=== PATIENT | male | born 1955 | race Caucasian/White ===

== ENCOUNTER → 2023-08-16 12:55 | Outpatient (BNVA) | payer OTHER, SELFPAY | PROVIDERS: Visit Provider Physician Assistant Medical | DX: M54.50 Low back pain, unspecified (principal); M54.16 Radiculopathy, lumbar region | CPT/HCPCS: 72110; 99203 ==

== ENCOUNTER → 2023-08-25 09:31 | Outpatient (BNVA) | payer OTHER, SELFPAY | PROVIDERS: Visit Provider Physician Assistant Medical | DX: M54.16 Radiculopathy, lumbar region (principal) | CPT/HCPCS: 99213 ==

== ENCOUNTER → 2023-09-15 09:24 | Outpatient (BNVA) | payer OTHER, SELFPAY | PROVIDERS: PCP Internal Medicine; Visit Provider Physician Assistant Medical | DX: M54.16 Radiculopathy, lumbar region (principal) | CPT/HCPCS: 99213 ==

== ENCOUNTER → 2023-10-06 10:08 | Outpatient (BNVA) | payer OTHER, SELFPAY | PROVIDERS: PCP Internal Medicine; Visit Provider Physician Assistant Medical | DX: M54.50 Low back pain, unspecified (principal) | CPT/HCPCS: 99213 ==

== ENCOUNTER → 2023-10-27 09:07 | Outpatient (BNVA) | payer OTHER, SELFPAY | PROVIDERS: PCP Internal Medicine; Visit Provider Physician Assistant Medical | DX: M79.651 Pain in right thigh (principal) | CPT/HCPCS: 72190; 99213 ==

== ENCOUNTER 2023-10-27 19:28 | Outpatient (REF) | payer OTHER, SELFPAY ==
--- NOTE | ~2023-10-27 | MR_ITS ---
EXAMINATION: MR LUMBAR SPINE WITHOUT CONTRAST CLINICAL INFORMATION: Low back pain and radiculopathy COMPARISON: Lumbar radiographs 08/16/2023 TECHNIQUE: MRI of the lumbar spine was obtained using routine sequences without the administration of intravenous contrast. FINDINGS: This examination assumes the presence of 5 lumbar type vertebral bodies. For the purposes of this examination, the L5-S1 intervertebral disc space is visualized on axial series 8 image 32. 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 The normal lumbar lordosis is preserved. Grade 1 anterolisthesis of L4-L5. Retrolisthesis of T12-L1 and L1-L2. Multilevel Schmorl's nodes are noted. Multilevel degenerative endplate changes. Facet/perifacet edema at L4-L5, likely on the basis of degenerative change. The conus medullaris and cauda equina nerve roots are unremarkable; the conus terminates at the level of L1. T12-L1: Retrolisthesis and a disc bulge. Facet arthropathy with ligamentum flavum redundancy. The spinal canal is patent. Moderate narrowing of the right neural foramen. L1-L2: Retrolisthesis and disc bulge with osteophytic ridging. Facet arthropathy with ligamentum flavum redundancy. There is moderate spinal canal stenosis with crowding of the cauda equina nerve roots. Moderate to severe narrowing of the right neural foramen with exiting nerve root impingement. Mild to moderate narrowing of the left neural foramen. L2-L3: Trace disc bulge. Facet arthropathy and ligamentum flavum redundancy. The spinal canal is mildly narrowed. Prominent epidural fat. Mild narrowing of the right neural foramen. L3-L4: Disc bulge and facet arthropathy with ligamentum flavum redundancy. Prominent epidural fat. Mild narrowing of the thecal sac. Mild narrowing of the right neural foramen. L4-L5: Severe facet arthropathy with ligamentum flavum redundancy. Small bilateral facet joint fluid. There is grade 1 anterolisthesis with uncovering of the intervertebral disc space. Severe spinal canal stenosis with impingement of the lateral recesses. There is mild to moderate right neural foraminal stenosis with exiting nerve root abutment by facet arthropathy. Severe left neural foraminal stenosis with compression of the exiting left L4 nerve root in the neural foramen extending into the far lateral space. L5-S1: The spinal canal is patent. The left neural foramen is mildly narrowed. Partially visualized bladder wall thickening with possible superiorly directed diverticulum. MR/MR lumbar spine wo con IMPRESSION: This examination assumes the presence of 5 lumbar type vertebral bodies. 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 Numbering system for this examination as described above. If surgery is considered, total spine radiographs are recommended to ensure accurate spine labeling. Grade 1 anterolisthesis of L4-L5 with severe spinal canal stenosis. Severe left neural foraminal stenosis at L4-L5 without exiting nerve root compression. Moderate spinal canal stenosis at L1-L2 with moderate to severe right neural foraminal stenosis and exiting nerve root impingement. Electronically signed by: Rudy Carver MD 11/02/2023 06:51 PM EDT
== END 2023-10-27 19:29 | disposition home or self-care (01) ==
LOC: HO.MRI 19:28
PROVIDERS: PCP Internal Medicine; Visit Provider Internal Medicine
DX: M54.16 Radiculopathy, lumbar region (principal); Z91.81 History of falling
CPT/HCPCS: 72148

== ENCOUNTER → 2023-11-10 09:27 | Outpatient (BNVA) | payer OTHER, SELFPAY | PROVIDERS: PCP Internal Medicine; Visit Provider Physician Assistant Medical | DX: M51.16 Intervertebral disc disorders with radiculopathy, lumbar region (principal) | CPT/HCPCS: 99213 ==

== ENCOUNTER 2023-11-25 08:50 | Outpatient (RCR) | payer OTHER, BC, SELFPAY ==
--- NOTE | 2023-09-09 06:52 | MHC.PT.EP ---
[facility] [place] Office [place] Office [place] Office [address] Zeferino Faulkner [address] [phone] F: [phone] F: [phone] F: [phone] F: [phone] Physical Therapy Plan of Care Date of Evaluation: 09/07/23 Date of Surgery: Diagnosis: LBP with sciatica Assessment: Pt is a 68yo male who presents with subacute low back pain s/p fall. PT exam reveals poor sitting posture, improper body mechanics, as well as core/hip strength impairments. Skilled PT indicated to address symptoms of radiculopathy/pain, teach body awareness to reduce strain on back, promote lumbar stabilization through exercises, and prescribe HEP to maintain gains upon discharge. Pt is in agreement with POC and is motivated to participate. Frequency and Duration: The patient will be seen 2x/week x 4 weeks Short Term Goals: 1. In 2 weeks, patient will be able to properly active TA and hold x 10 seconds while in 3 different positions. 2. In 2 weeks, patient will demonstrate proper sitting posture. 3. In 2 weeks, patient will complete daily exercises with > 75% compliance. Leather Drier Goals: 1. In 4 weeks, patient will report overall improved pain levels and mobility, as indicated by score >= 70/80 on LEFS. 2. Patient will report 100% centralization of R LE symptoms. 3. I with D/C HEP in 4 weeks. Treatment Plan: Modalities to reduce pain, spasms and effusion. Manual therapy to restore motion and function. Therapeutic exercise to improve strength and flexibility. Neuromuscular re-education for posture and balance. Therapeutic activities to return to functional activities of daily living. Electronically signed by: Altagracia Martin PT, DPT Please sign and return to therapist. Thank you for your referral.
--- NOTE | 2023-09-12 15:31 | MHC.PT.OE ---
[facility] [place] Office [place] Office [place] Office [address] Zeferino Faulkner [address] [phone] F: [phone] F: [phone] F: [phone] F: [phone] Physical Therapy Evaluation Evaluation Date: 09/07/23 Current Condition Diagnosis: LBP with sciatica Onset Date: 08/25/23 Date of Surgery: Chief Complaint/ Current Level of Function: Pt is a 68yo male who presents for low back pain. Pt reports he fell/slipped at a store on July 21, fell onto his butt. Pt felt R LE pain a week later. Pt noted to have LE pain goes down to his lateral calf, not into the toes. Pt does not feel like his leg is going to give out. 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 Pt usually wakes up in the morning and feels fine, the pain is worse after a long day. Pt was prescribed steroids for a brief time which helped the pain. Prior Level of Function/Occupation: Goes to [employer] both weekend days usually, sometimes only once a week because of the pain lately. Does some resistance machines, rowing machine. Likes to ride his bike outdoors Diagnostic Imaging: X-Ray 08/16/23: degenerative changes observed, L4-S1 anterior spondolytic changes Patient Goals and Expectations: To get rid of the leg pain/numbness, and prevent it from getting worse. Past Medical History: PSH: R shoulder surgery Medications: see list Precautions/ Contraindications: inguinal hernia: avoid increased intrabdominal pressure Outcome Measure: 55/80 LEFS Pain Pain Score: 5 Pain Scale Used: Numeric (0 - 10) Pain Location/ Description: low back, R LE Aggravating Factors: sitting or standing too long Alleviating Factors: steroids helped, ice Objective Findings Posture: Skin & Soft Tissue/ Palpation: Gait/ Functional Mobility: AROM (PROM) Strength Cervical Spine Flexion: Extension: Lateral Flexion: Rotation: Cervical Comments: Flexion: Extension: Lateral Flexion: Rotation: Other: Shoulder Flexion: Extension: Abduction: ER: IR: Apley ER: Apley IR: Comments: Flexion: Extension: Abduction: Adduction: ER: IR: Other: Elbow Flexion: Extension: Pronation: Supination: Comments: Flexion: Extension: Pronation: Supination: Wrist Flexion: Wrist Extension: Other: Lumbar Spine Flexion: Extension: Lateral Flexion: Rotation: Comments: Transverse abdominus: Extensors: Other: Hip Flexion: Extension: Abduction: Adduction: ER: IR: Comment: Flexion: Extension: Abduction: Adduction: ER: IR: Other: Knee Flexion: Extension: Comments: Patella Mobility: Flexion: Extension: Other: Ankle Dorsiflexion: Plantarflexion: Inversion: Eversion: Comments: Dorsiflexion: Plantarflexion: Inversion: Eversion: Comments: Pedro Assessment: Sacroiliac Assessment: Muscle Length: Special Tests: Vitals: BP: HR: O2SAT: RR: Other: Balance: Neurological Screen: Biceps DTR: Brachioradialis DTR: Triceps DTR: Patella DTR: Achilles DTR: Other: Dermatomes: Sensation: Myotomes: Patient Education Primary Language Estonian Cosmetics Demonstrator Required No Who was Educated Patient Readiness for Learning Accepting Current Knowledge Understands information with skills for self-management Education Needs ADL's Disease Information Equipment Use Exercise Pain Safety Teaching Method Verbal Demonstration Handouts How did Patient Demonstrate Learning Patient demonstrates Patient verbalizes Barriers to Learning None Assessment Assessment: Pt is a 68yo male who presents with subacute low back pain s/p fall. PT exam reveals poor sitting posture, improper body mechanics, as well as core/hip strength impairments. Skilled PT indicated to address symptoms of radiculopathy/pain, teach body awareness to reduce strain on back, promote lumbar stabilization through exercises, and prescribe HEP to maintain gains upon discharge. Pt is in agreement with POC and is motivated to participate. Rehabilitation Potential: Good Plan of Care Frequency and Duration 2x/week x 4 weeks Short Term Goals 1. In 2 weeks, patient will be able to properly active TA and hold x 10 seconds while in 3 different positions. 2. In 2 weeks, patient will demonstrate proper sitting posture. 3. In 2 weeks, patient will complete daily exercises with > 75% compliance. Nursing Home Goals 1. In 4 weeks, patient will report overall improved pain levels and mobility, as indicated by score >= 70/80 on LEFS. 2. Patient will report 100% centralization of R LE symptoms. 3. I with D/C HEP in 4 weeks. Treatment Plan Therapeutic Exercise Dynamic Therapeutic Activities Neuromuscular Re-ed Manual Therapies Joint Mobilization Taping Gait Home Exercise Program Patient Education Electrical Stimulation Mechanical Traction Hot or Cold Pack Reviewed/ Agreed with Student Documentation: Therapist: Electronically signed by: Altagracia Martin PT, DPT Please sign and return to therapist. Thank you for your referral.
--- NOTE | 2023-09-12 15:32 | MHC.PT.OE ---
[facility] [place] Office Only Office [place] Office [address] Zeferino Faulkner [address] [phone] F: [phone] F: [phone] F: [phone] F: [phone] Physical Therapy Evaluation Evaluation Date: 09/07/23 Current Condition Diagnosis: LBP with sciatica Onset Date: 08/25/23 Date of Surgery: Chief Complaint/ Current Level of Function: Pt is a 68yo male who presents for low back pain. Pt reports he fell/slipped at a store on July 21, fell onto his butt. Pt felt R LE pain a week later. Pt noted to have LE pain goes down to his lateral calf, not into the toes. Pt does not feel like his leg is going to give out. 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 Pt usually wakes up in the morning and feels fine, the pain is worse after a long day. Pt was prescribed steroids for a brief time which helped the pain. Prior Level of Function/Occupation: Goes to [employer] both weekend days usually, sometimes only once a week because of the pain lately. Does some resistance machines, rowing machine. Likes to ride his bike outdoors Diagnostic Imaging: X-Ray 08/16/23: degenerative changes observed, L4-S1 anterior spondolytic changes Patient Goals and Expectations: To get rid of the leg pain/numbness, and prevent it from getting worse. Past Medical History: PSH: R shoulder surgery Medications: see list Precautions/ Contraindications: inguinal hernia: avoid increased intrabdominal pressure Outcome Measure: 55/80 LEFS Pain Pain Score: 5 Pain Scale Used: Numeric (0 - 10) Pain Location/ Description: low back, R LE Aggravating Factors: sitting or standing too long Alleviating Factors: steroids helped, ice Objective Findings Posture: Skin & Soft Tissue/ Palpation: Gait/ Functional Mobility: AROM (PROM) Strength Cervical Spine Flexion: Extension: Lateral Flexion: Rotation: Cervical Comments: Flexion: Extension: Lateral Flexion: Rotation: Other: Shoulder Flexion: Extension: Abduction: ER: IR: Apley ER: Apley IR: Comments: Flexion: Extension: Abduction: Adduction: ER: IR: Other: Elbow Flexion: Extension: Pronation: Supination: Comments: Flexion: Extension: Pronation: Supination: Wrist Flexion: Wrist Extension: Other: Lumbar Spine Flexion: Extension: Lateral Flexion: Rotation: Comments: Transverse abdominus: Extensors: Other: Hip Flexion: Extension: Abduction: Adduction: ER: IR: Comment: Flexion: Extension: Abduction: Adduction: ER: IR: Other: Knee Flexion: Extension: Comments: Patella Mobility: Flexion: Extension: Other: Ankle Dorsiflexion: Plantarflexion: Inversion: Eversion: Comments: Dorsiflexion: Plantarflexion: Inversion: Eversion: Comments: Pedro Assessment: Sacroiliac Assessment: Muscle Length: Special Tests: Vitals: BP: HR: O2SAT: RR: Other: Balance: Neurological Screen: Biceps DTR: Brachioradialis DTR: Triceps DTR: Patella DTR: Achilles DTR: Other: Dermatomes: Sensation: Myotomes: Patient Education Primary Language Turkish Ground Worker Required No Who was Educated Patient Readiness for Learning Accepting Current Knowledge Understands information with skills for self-management Education Needs ADL's Disease Information Equipment Use Exercise Pain Safety Teaching Method Verbal Demonstration Handouts How did Patient Demonstrate Learning Patient demonstrates Patient verbalizes Barriers to Learning None Assessment Assessment: Pt is a 68yo male who presents with subacute low back pain s/p fall. PT exam reveals poor sitting posture, improper body mechanics, as well as core/hip strength impairments. Skilled PT indicated to address symptoms of radiculopathy/pain, teach body awareness to reduce strain on back, promote lumbar stabilization through exercises, and prescribe HEP to maintain gains upon discharge. Pt is in agreement with POC and is motivated to participate. Rehabilitation Potential: Good Plan of Care Frequency and Duration 2x/week x 4 weeks Short Term Goals 1. In 2 weeks, patient will be able to properly active TA and hold x 10 seconds while in 3 different positions. 2. In 2 weeks, patient will demonstrate proper sitting posture. 3. In 2 weeks, patient will complete daily exercises with > 75% compliance. Snf Goals 1. In 4 weeks, patient will report overall improved pain levels and mobility, as indicated by score >= 70/80 on LEFS. 2. Patient will report 100% centralization of R LE symptoms. 3. I with D/C HEP in 4 weeks. Treatment Plan Therapeutic Exercise Dynamic Therapeutic Activities Neuromuscular Re-ed Manual Therapies Joint Mobilization Taping Gait Home Exercise Program Patient Education Electrical Stimulation Mechanical Traction Hot or Cold Pack Reviewed/ Agreed with Student Documentation: Therapist: Electronically signed by: Altagracia Martin PT, DPT Please sign and return to therapist. Thank you for your referral.
--- NOTE | 2023-09-12 15:32 | MHC.PT.OD ---
[facility] [place] Office [place] Office [place] Office [address] Zeferino Faulkner [address] [phone] F: [phone] F: [phone] F: [phone] F: [phone] Physical Therapy Daily Note Diagnosis: LBP with sciatica Date of Surgery: Date of Evaluation: 09/07/23 Date of Treatment: 09/07/23 Treatments to Date: 1 Cancellations to Date: No Shows to Date: Authorized Visits: Insurance End Date: Precautions/ Contraindications:inguinal hernia: avoid increased intrabdominal pressure Subjective: I want to get back to my normal job. Pain Score and Location: 5 low back,l R LE Objective Flowsheet: Tests & Measures see eval Exercises TAC training, difficulty to activate, cues to avoid holding breath shhhh method to activate pt ed re: avoid holding breath to reduce pressure on inguinal hernia -more success with TAC when also completing PPT pt ed re: sitting posture, avoid sacral sitting bed mobility: log roll body mechanics with lifting Modalities Assessment: Pt is a 68yo male who presents with subacute low back pain s/p fall. PT exam reveals poor sitting posture, improper body mechanics, as well as core/hip strength impairments. Skilled PT indicated to address symptoms of radiculopathy/pain, teach body awareness to reduce strain on back, promote lumbar stabilization through exercises, and prescribe HEP to maintain gains upon discharge. Pt is in agreement with POC and is motivated to participate. PT Plan: lumbar stab, centralization of R LE pain, improve body mechanics and teach back protection Short Term Goals: 1. In 2 weeks, patient will be able to properly active TA and hold x 10 seconds while in 3 different positions. 2. In 2 weeks, patient will demonstrate proper sitting posture. 3. In 2 weeks, patient will complete daily exercises with > 75% compliance. Snf Goals: 1. In 4 weeks, patient will report overall improved pain levels and mobility, as indicated by score >= 70/80 on LEFS. 2. Patient will report 100% centralization of R LE symptoms. 3. I with D/C HEP in 4 weeks. Electronically signed by: Altagracia Martin PT, DPT
--- NOTE | 2023-10-04 07:56 | MHC.PT.OD ---
[facility] [place] Office [place] Office [place] Office [address] Zeferino Faulkner [address] [phone] F: [phone] F: [phone] F: [phone] F: [phone] Physical Therapy Daily Note Diagnosis: L5 contusion/strain with R radicular sx date of script 08/25/23 by Clair Mcdonald PA-C [facility] Date of Surgery: Date of Evaluation: 09/07/23 Date of Treatment: 10/04/23 Treatments to Date: 1 Cancellations to Date: No Shows to Date: Authorized Visits: Insurance End Date: Precautions/ Contraindications:inguinal hernia: avoid increased intrabdominal pressure Subjective: It was okay yesterday until I started bopping around the kitchen. Pt states he has a follow-up on . Pain Score and Location: 3.5 low back,l R LE Objective Flowsheet: Tests & Measures Lumbar flexion: Able to reach height of ankle, tightness in HS expressed bilaterally Lumbar extension: Mild sx with 50% ROM. Lumbar sidebending: L sidebend 50% sx R lumbar with pulling, right sidebending: Increased R calf symptoms with 25% ROM, Slump test (+) on R, Negative SLR, L hip extension 4/5, R hip extension 4-/5 sx on R lumbar, prone instability test (+), L hip flexion 5/5, R hip flexion 5-/5, L hip abd 4+/5, R hip abd 4+/5, L knee ext 5/5, R knee ext 5-/5, L ankle DF 5/5 L>R, L ankle PF 4/5, L SLS able to perform >20 seconds, R SLS more off-balanced ~8 seconds, L SLS able to perform mini squat, R SLS unable to without LOB, weakness in R LE observed with valgus collapse. Pt has good functional squat but >45 degrees causes radiating sx below the knee. Pt has been educated in a log roll technique/reviewed lifting mechanics. Exercises Prone hip extension over physio-ball x 2 sets 10R x 2 sets 10R; standing mini wall squat with 2000 gram ball chest press combo to 45 degree squat, attempt trial of quadriped UE/LE raise with modified knee/leg lift/UE lift (pt unable to perform R hip ext with combo of L UE due to weakness/poor balance on stability so was modified to R LE solo, R LE only on R side, was able to perform L LE w/R UE x 2 sets 10R with R tactile cues for support and positioning. Reiterated importance of not pushing into pain or tasks which cause radiation of sx. Review of body mechanics for lifting/techniques. Modalities Patient denies history of lumbar surgery. Pt rated sx 2-3/10 in R lateral proximal hip. Pt applied Lockhart portable lumbar traction applied in 90/90 position with physio-ball under the knees 6 pumps static setting x 20 minutes, Five additional minutes after pull force was released to allow body to relax from that position. Goal of centralization of sx. Improvement in R calf sx expressed post lumbar traction. 25 minutes total (20 traction, five post rest Assessment: 10/04/23: Pt was trialed with higher level stabilization activities today. Challenge was noted with prone hip extension and bridging with use of an exercise ball. He was noted to have trouble dynamically stabilizing on R LE. Upon completion of the bridge, mild calf sx were triggered which centralized upon standing. Pt will benefit from progression for return to lifting>higher level stabilization/squatting/ to prepare for higher level work demands. Please advise in ability to progress lifting ability >4# to prepare for higher level work demands. Pt will be seeing the [facility] on 10/06/23. Pt has been receiving Lockhart portable lumbar traction for the past few visits with reported gain/centralization. Today we received verbal authorization for an additional 8 visits of [facility] for PT and was told written auth will be sent over after 10am. 09/29/28: Pt has improved in lumbar AROM since initial onset, however R radiating calf sx persist intermittently. Pt has been receiving lumbar traction and a stabilization program with good response. He remains OOW at this time and will be having a follow up with the [facility]. He has not been lifting due to lifting restriction with focus on centralization of sx. 09/27/23: Pt has attended 7 sessions of PT to date exhibiting some positive response to sx with formal PT. Pt has been implemented in a lumbar stabilization program (extension emphasis) with progression to portable lumbar traction with centralization reported. Pt reports some lower back pain dull ache reported in R calf sx expressed 2-3/10 in AM radiating to height of upper calf/knee. Pt will benefit from ongoing PT. Pt states an MRI was requested/ordered but has not received auth approval or a date for this yet. Pt will return to [facility] on 10/06/23. Pt states improved tolerance for sitting, however intermittent calf/lateral knee sx are reported inconsistently through the day. We discussed impact of walking incline and correlation of journaling sx to see if he can note cause/effect for such. Pt returns to the [facility] on 10/06/23, he remains OOW at this time. 09/22/23: Positive early response to traction treatment. Increased traction time to 15 minutes with good tolerance. 09/20/23: Pt was trialed with portable Lockhart lumbar traction unit in effort to centralize R le sx. Pt expressed total relief of R calf sx post session with traction trial Pt was encouraged to monitor and assess sx, continue prone based series and also trial lumbar flexion stretch on couch with feet elevated (similar to traction position this date). At baseline today pt reported sx in R calf 2-4/10 in intensity, reduced to 0/10 post traction. He was advised to monitor length and duration of relief. Pt remain OOW at this time. Pt had to change his appt time on Tuesday but was RS to this week. 09/16/23: Pt exhibits (+) centralization of sx with prone extension>press-ups, was triggered with slight wall squat/flexion tasks. R radiating sx to height of calf. Reduced with lesser degree of squat depth. Pt encouraged to stick with a walking program and perform prone extension several times daily to relieve sx. 09/13/23: Pt exhibits good tolerance for flexion/extension overall. Pt has preferences for extension based task, AROM today, expresses mild sx into R calf rates 3/10. He denies lumbar sx this date. He was trialed in prone extension series with positive response. We discussed standing lumbar extension as an option/alternate for prone series. Initially sitting position today triggered his sx this date. Overall patient is able to walk with symmetry with no antalgia. Pt reports sx are triggered with flexion and sitting at times. Pt has been encouraged to avoid sitting prolonged periods and continue walking program, gym tasks as discussed with patient Pt is a 68yo male who presents with subacute low back pain s/p fall. PT exam reveals poor sitting posture, improper body mechanics, as well as core/hip strength impairments. Skilled PT indicated to address symptoms of radiculopathy/pain, teach body awareness to reduce strain on back, promote lumbar stabilization through exercises, and prescribe HEP to maintain gains upon discharge. Pt is in agreement with POC and is motivated to participate. No auth received from at this time- encouraged patient to call and check status. Pt's lumbar AROM is not terribly limited however trunk flexion in standing and loading triggers sx into proximal hip. PT Plan: Await orders from [facility]>higher level strengthening/lifting clearance> continue traction Short Term Goals: 1. In 2 weeks, patient will be able to properly active TA and hold x 10 seconds while in 3 different positions. 2. In 2 weeks, patient will demonstrate proper sitting posture. 3. In 2 weeks, patient will complete daily exercises with > 75% compliance. Track Laminating Machine Tender Goals: 1. In 4 weeks, patient will report overall improved pain levels and mobility, as indicated by score >= 70/80 on LEFS. 2. Patient will report 100% centralization of R LE symptoms. 3. I with D/C HEP in 4 weeks. Electronically signed by: Anamaria Martin, PT, DPT
== END 2024-01-17 13:31 | disposition home or self-care (01) ==
LOC: HO.PTWFD 08:50
PROVIDERS: PCP Internal Medicine; Visit Provider Physician Assistant Medical
DX: S30.0XXD Contusion of lower back and pelvis, subsequent encounter (principal); S39.012D Strain of muscle, fascia and tendon of lower back, subsequent encounter; M54.16 Radiculopathy, lumbar region
CPT/HCPCS: 97012; 97110; 97161; 97530

== ENCOUNTER → 2023-12-01 09:20 | Outpatient (BNVA) | payer OTHER, SELFPAY | PROVIDERS: PCP Internal Medicine; Visit Provider Physician Assistant Medical | DX: M54.16 Radiculopathy, lumbar region (principal) | CPT/HCPCS: 99213 ==